=== PATIENT | male | born 1985 | race Caucasian/White ===

== ENCOUNTER 2024-05-31 09:23 | Emergency (ER) | payer BC | END 2024-05-31 10:46 | disposition home or self-care (01) | LOC: JP.ED 09:23 | DX: S61.012A Laceration without foreign body of left thumb without damage to nail, initial encounter (principal); F17.210 Nicotine dependence, cigarettes, uncomplicated; W26.0XXA Contact with knife, initial encounter | CPT/HCPCS: 99282 ==

== ENCOUNTER 2024-11-04 05:48 | Day surgery (SDC) | payer BC ==
[2024-11-04 06:24] LABS: HEMATOCRIT 44.8 % (38.4-49.7); HEMOGLOBIN 15.6 g/dL (12.9-16.9); MEAN CORPUSCULAR HGB CONC 34.8 g/dL (31.6-35.5); MEAN CORPUSCULAR VOLUME 97.6 fL (81.4-99.0); RED BLOOD CELL COUNT 4.59 M/uL (4.14-5.76)
[2024-11-04 06:39] LABS: ANION GAP 9.4 mmol/L (5.0-14.0); CALCIUM 8.7 mg/dL (8.5-10.1); EST CRCL DRUG DOSING (CG) 101.96 mL/min; POTASSIUM,K 3.9 mmol/L (3.6-5.2)
[2024-11-04] MEDS: Nozin Nasal Sanitizer NASBOTH ONE (06:43)
[2024-11-04] MEDS: Lactated Ringers 1,000 ML IV SCH (06:52)
[2024-11-04] MEDS ORDERED: Ondansetron 4 MG/2 ML SDV ONE (06:58)
[2024-11-04] MEDS ORDERED: Propofol 200 MG/20 ML SDV ONE (06:58)
[2024-11-04] MEDS ORDERED: Dexamethasone 4 MG/ML SDV ONE (06:58)
[2024-11-04] MEDS ORDERED: fentaNYL 250 MCG/5 ML SDV ONE (06:58)
[2024-11-04] MEDS ORDERED: Midazolam 1 MG/ML 2 ML SDV ONE (06:58)
[2024-11-04] MEDS ORDERED: Bupivacaine 0.25%/EPINEPHrine 1:200,000 30 ML SDV ONE (07:19)
[2024-11-04] MEDS: ceFAZolin 2 GM in Premix Bag 1 BAG IV ONE (07:29)
[2024-11-04] MEDS ORDERED: fentaNYL 100 MCG/2 ML SDV ONE (08:36)
[2024-11-04] MEDS: Bupivacaine 0.5% 50 ML MDV ONE (09:14)
[2024-11-04] MEDS: Acetaminophen/HYDROcodone 325-5 MG Tab PO PRN (10:30)
== END 2024-11-04 12:50 | disposition home or self-care (01) ==
LOC: JP.SDS 05:48
PROVIDERS: ATTEND Specialist
DX: G56.21 Lesion of ulnar nerve, right upper limb (principal); M25.821 Other specified joint disorders, right elbow; M94.221 Chondromalacia, right elbow; Z88.0 Allergy status to penicillin
CPT/HCPCS: 01732; 29835; 36415; 64718; 80048; 85027; A9270; C1713; J0665; J0690; J1100; J2250; J2405; J2704; J3010; J7120